=== PATIENT | female | born 1930 | race Caucasian/White ===

== ENCOUNTER 2018-01-22 17:32 | Emergency (ER) | payer MEDICARE, OTHER ==
[2018-01-22] MEDS ORDERED: Lidocaine 2% with EPINEPHrine 1:100,000 20 ML MDV INJECT ONE (17:54)
--- NOTE | 2018-01-22 18:51 | EDM.PDOC ---
ED HPI GENERAL MEDICAL PROBLEM - General Source of Information: Reports: Patient, Family, RN, RN Notes Reviewed History Limitations: Reports: No Limitations - History of Present Illness Onset: Today, Sudden Onset Date: 01/22/18 <Jurgen Fajardo - Last Filed: 01/22/18 18:48> <Talon Espinoza - Last Filed: 01/23/18 06:41> - General Chief Complaint: Head Injury Stated Complaint: FELL Time Seen by Provider: 01/22/18 17:35 - History of Present Illness INITIAL COMMENTS - FREE TEXT/NARRATIVE: Patient presents to the emergency room at [facility] after she sustained a head injury status post fall. The patient states that she was walking down a sidewalk when she tripped and fell on uneven surface striking the right side of her head and landing on her right arm. The patient complains of neck and head pain. The patient remembers the entire fall. The patient denies any LOC. The patient denies any previous head injury or trauma. No previous head surgeries. The patient does complain of some right hand pain. The patient does have an abrasion to the right druze and a laceration to the palmar surface of the right hand. The patient states that she has chronic back pain. The patient denies any numbness tingling or paresthesia to any extremity. The patient denies any bowel or bladder incontinence. Otherwise no other concerns. (Jurgen Fajardo) - Related Data Allergies Allergy/AdvReac Type Severity Reaction Status Date / Time alendronate sodium Allergy Other Verified 01/22/18 19:15 [From Fosamax] cyclobenzaprine Allergy Disorientat Verified 01/22/18 19:15 ion hydrochlorothiazide Allergy Other Verified 01/22/18 19:15 [From Dyazide] losartan Allergy Other Verified 01/22/18 19:15 tramadol Allergy Other Verified 01/22/18 19:15 triamterene [From Dyazide] Allergy Other Verified 01/22/18 19:15 Home Meds: Home Meds Acetaminophen/Diphenhydramine [Tylenol Pm Ex-Strength Caplet] 1 each PO BEDTIME PRN 01/22/18 [History] Aspirin [Halfprin] 81 mg PO DAILY 01/22/18 [History] Calcium Carb & Citrate/Vit D3 [Calcium + D3 ER Tablet] 1 each PO DAILY 01/22/18 [History] Flaxseed Oil 1,000 mg PO DAILY 01/22/18 [History] Metoprolol Succinate [Toprol Xl] 1 tab PO DAILY 01/22/18 [History] Multivitamin with Minerals [Multiple Vitamin] 1 each PO DAILY 01/22/18 [History] Pravastatin Sodium 1 tab PO DAILY 01/22/18 [History] Ubidecarenone [Coenzyme Q10] 100 mg PO DAILY 01/22/18 [History] Vitamin B Complex 1 each PO DAILY 01/22/18 [History] amLODIPine Besylate [Amlodipine Besylate] 1 tab PO DAILY 01/22/18 [History] ED ROS GENERAL - Review of Systems Review Of Systems: See Below Constitutional: Denies: Fever, Chills, Weakness HEENT: Reports: Glasses. Denies: Dental Pain, Ear Pain, Eye Pain, Vision Change Respiratory: Denies: Shortness of Breath, Cough Cardiovascular: Denies: Chest Pain, Palpitations GI/Abdominal: Denies: Abdominal Pain, Nausea, Vomiting Musculoskeletal: Reports: Neck Pain, Hand Pain. Denies: Back Pain Skin: Reports: Wound Neurological: Reports: Headache. Denies: Dizziness, Numbness, Paresthesia, Tingling <Jurgen Fajardo - Last Filed: 01/22/18 18:48> ED EXAM, HEAD INJURY - Physical Exam Exam: See Below Exam Limited By: No Limitations General Appearance: Alert, No Apparent Distress Head: Normocephalic, Facial Abrasions Nexus Criteria: No: Posterior, Midline Cervical Tenderness, Altered Level of Consciousness, Focal Neurological Deficit Eyes: Bilateral Eye: EOMI, Normal Inspection, PERRL Ears: Normal External Exam, Normal Canal, Normal TMs Nose: Normal Inspection, No Blood Throat/Mouth: Normal Oropharynx, No Airway Compromise Neck: Non-Tender, Normal Alignment Respiratory: No Respiratory Distress, Lungs Clear, Normal Breath Sounds Cardiovascular: Normal Peripheral Pulses, Regular Rate, Rhythm GI/Abdominal Exam: Normal Bowel Sounds, Soft, Non-Tender Back Exam: Normal Inspection Extremities: Normal Inspection Neurologic: Alert, Oriented x 3 Skin: Normal Color, Warm/Dry, Other (Laceration to the palmar surface of right hand) - Edward Coma Score Best Eye Response (Edward): (4) Open Spontaneously Best Verbal Response (Edward): (5) Oriented Best Motor Response (Edward): (6) Obeys Commands [place] Total: 15 <Jurgen Fajardo - Last Filed: 01/22/18 18:48> ED LACERATION/WOUND & GERARD PROC <Jurgen Fajardo - Last Filed: 01/22/18 18:48> - Laceration/Wound Repair Right Hand Lac/wound length in cm: 2 Appearance: Superficial Distal NVT: Neuro & Vascular Intact, No Tendon Injury Anesthetic Type: Local Local Anesthesia - Lidocaine (Xylocaine): 1% Plain Local Anesthetic Volume: 3cc Skin Prep: Chlorhexidine (Hibiciens), Saline, Sterile Drape Exploration/Debridement/Repair: Wound Explored, Explored to Base Closed with: Sutures Suture Size: 4-0 Tetanus Status Addressed: Yes - Splinting Right Upper Extremity Pre-procedure NV status: Normal Post-procedure NV status: Normal Splint Design: Gutter Applied & Form Fitted By: Provider Provider Post-Splint Application NV Check: NV Status Normal, Good Position <Talon Espinoza - Last Filed: 01/23/18 06:41> - Additional/Other Procedure(s) Other (Free Text) Procedure(s): The abrasion/puncture wound was cleansed with chlorhexidine and normal saline. The abrasion/puncture was treated with dermabond. (Talon Espinoza) Course <Jurgen Fajardo - Last Filed: 01/22/18 18:48> <Talon Espinoza - Last Filed: 01/23/18 06:41> - Vital Signs Last Recorded V/S: Last Vital Signs Temp 36.1 C 01/22/18 17:32 Pulse 95 01/22/18 17:32 Resp 18 01/22/18 17:32 BP 149/76 H 01/22/18 17:32 Pulse Ox 95 01/22/18 17:32 - Orders/Labs/Meds Orders: Active Orders 24 hr Category Date Time Status Cervical Spine wo Cont [CT] Stat Exams 01/22/18 17:53 Taken Hand Comp Min 3V Rt [CR] Stat Exams 01/22/18 17:54 Taken Head wo Cont [CT] Stat Exams 01/22/18 17:53 Taken Meds: Medications Discontinued Medications Generic Name Dose Route Start Last Admin Trade Name Freq PRN Reason Stop Dose Admin Lidocaine HCl 30 ml 01/22/18 19:12 01/22/18 19:20 Xylocaine-Mpf 1% INJECT 01/22/18 19:13 30 ml ONETIME ONE Administration - Radiology Interpretation Free Text/Narrative:: CT brain and c-spine are negative. Radiographs of R hand reveal 5th metacarpal fracture. (Talon Espinoza) Departure <Jurgen Fajardo - Last Filed: 01/22/18 18:48> - Departure Time of Disposition: 19:57 <Talon Espinoza - Last Filed: 01/23/18 06:41> - Departure Disposition: Home, Self-Care 01 Clinical Impression: Concussion injury of brain, Laceration, Fracture, metacarpal Clinical Impression: (Ruled Out): Fracture of 5th metatarsal - Discharge Information Instructions: Head Injury, Adult, Laceration Care, Adult, Metacarpal Fracture, [id number] Referrals: PCP,Not In Area [Primary Care Provider] - Forms: ED Department Discharge Additional Instructions: Remove dressing on Thursday. They will be able to put you in a velcro splint for your hand fracture at that time. Sutures out in 12 days. Return to ER if you have any headache, confusion, chest pain, or shortness of breath. Keep the injury to your druze dry for 24 hours. Return if any redness, swelling, or discharge. - Problem List Review Problem List Initiated/Reviewed/Updated: Yes <Jurgen Fajardo - Last Filed: 01/22/18 18:48> <Talon Espinoza - Last Filed: 01/23/18 06:41> - Assessment/Plan Plan: Remove dressing on Thursday. They will be able to put you in a velcro splint for your hand fracture at that time. Sutures out in 12 days. Return to ER if you have any headache, confusion, chest pain, or shortness of breath. Keep the injury to your druze dry for 24 hours. Return if any redness, swelling, or discharge. (Talon Espinoza)
[2018-01-22] MEDS ORDERED: Lidocaine 1% 30 ML SDV INJECT ONE (19:12)
== END 2018-01-22 20:10 | disposition home or self-care (01) ==
LOC: VM.ED 17:32
DX: S06.0X0A Concussion without loss of consciousness, initial encounter (principal); S61.411A Laceration without foreign body of right hand, initial encounter; S62.306A Unspecified fracture of fifth metacarpal bone, right hand, initial encounter for closed fracture; W18.09XA Striking against other object with subsequent fall, initial encounter; Z79.899 Other long term (current) drug therapy
CPT/HCPCS: 12001; 29125; 70450; 72125; 73130-RT; 99284; 99284-GF-25